=== PATIENT | male | born 1970 | race Caucasian/White ===

== ENCOUNTER 2020-01-21 08:29 | Emergency (ER) | payer BC ==
[~2020-01-21] VITALS: Ht 177.8 cm; Wt 104.3 kg
[2020-01-21 09:08] LABS: ABSOLUTE BASOPHILS 0.1 thou/uL (0.0-0.2); ABSOLUTE EOSINOPHILS 0.2 thou/uL (0.0-0.7); ABSOLUTE LYMPHOCYTES 1.6 thou/uL (0.8-5.3); ABSOLUTE MONOCYTES 0.4 thou/uL (0.0-1.2); ABSOLUTE NEUTROPHILS 2.5 thou/uL (1.6-8.1); BASOPHILS 1.3 %; EOSINOPHILS 3.6 %; LYMPHOCYTES 34.2 %; MCH 28.1 pg (26.0-34.0); MCHC 33.4 g/dL (28.0-37.0); MONOCYTES 7.6 %; MPV 8.8 fl. (7.2-11.1); NUCLEATED RBCS 0 /100WBC; PLATELET COUNT* 202 thou/uL (150-400); POLYS 53.3 %; RDW-CV 13.6 % (10.5-14.5); WBC 4.7 thou/uL (4.0-11.0)
[2020-01-21 09:13] LABS: CALCIUM 8.7 mg/dL (8.5-10.1); CREATININE 1.3 mg/dL (0.6-1.3); POTASSIUM 3.8 mmol/L (3.5-5.1)
[2020-01-21 09:17] LABS: ALBUMIN 3.9 g/dL (3.4-5.0); TOTAL BILIRUBIN 0.5 mg/dL (<0.1-1.0); TOTAL PROTEIN 6.6 g/dL (6.4-8.2)
[2020-01-21 12:00] VITALS: BP 115/70
--- NOTE | 2020-01-21 15:41 | EKG ---
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
== END 2020-01-21 12:05 | disposition home or self-care (01) ==
LOC: M.ERS 08:29
PROVIDERS: Emergency Medicine Emergency Medical Services
DX: R55 Syncope and collapse (principal); R42 Dizziness and giddiness

== ENCOUNTER → 2020-02-19 | Outpatient (CLI) | payer BC ==
--- NOTE | 2020-02-19 17:03 | CARDNUC ---
[place] [address] CARDIAC NUCLEAR IMAGING REPORT Name: GONSALO SPEARS Room: [facility]#: [id number] Admission: 02/19/20 Attend Phys: Dimitris Castro, Discharge: Date of : 68 Date of Service: 02/19/20 1703 Report #: [id number] THIS REPORT FOR: cc: FAM - No family physician/PCP FAM - No family physician/PCP Gonsalo Patricio MD [facility] ~ APPROVED REPORT Imaging Protocol: Rest Tc-99m/Stress Tc-99m 1 day Study performed: 02/19/2020 09:45:00 Indication: Dyspnea, Syncope Patient Location: Out-Patient Stress Tech: Emilia Davila Stress Nurse: Molly Grullon RN NM Tech:RYAN Mathews Ht: 5 ft 10 in Wt: 232 lbs BSA: 2.22 m2 BMI: 33.28 Medical History Medical History: Valvular heart disease Medications: nonoe Allergies: No known drug allergies Cardiac Risk Factors: Age Exercise History: Physically active Resting Data Rest SPECT myocardial perfusion imaging was performed in supine position 30 minutes following the intravenous injection of 9.6 mCi of Tc-99m Sestamibi. Time of rest injection: 1005 Date: 02/19/2020 The images were gated to evaluate regional wall motion and calculate left ventricular ejection fraction. Administration Route: IV Administration Site: Left Hand Exercise Stress At peak stress, the patient was injected intravenously with 29.6mCi of Tc-99m Sestamibi. Time of stress injection: 1140 Date: 02/19/2020 Administration Route: IV Administration Site: Left Hand Gated Stress SPECT was performed 30 [place] [address] CARDIAC NUCLEAR IMAGING REPORT Name: GONSALO SPEARS Room: [facility]#: [id number] Admission: 02/19/20 Attend Phys: Dimitris Castro, Discharge: Date of : 68 Date of Service: 02/19/20 1703 Report #: [id number] injection. The images were gated to evaluate regional wall motion and calculate left ventricular ejection fraction. Prone imaging was performed. Stress Test Details Stress Test: Exercise stress testing was performed using a Farhan protocol. HR Max Heart Rate (APMHR): 170 bpm Resting HR: 74 bpm Target HR (85% APMHR): 144 bpm Max HR Achieved: 160 bpm % of APMHR: 94 Recovery HR: 94 bpm BP Resting BP: 119/76 mmHg Max BP: 177/73 mmHg Recovery BP: 140/78 mmHg ECG Resting ECG: Sinus Rhythm Stress ECG: Sinus Tachycardia ST Change: Horizontal ST depression Maximum ST Deviation: 0.5 mm Arrhythmia: None Recovery ECG: Sinus Rhythm Recovery ST Change: Horizontal ST depression Recovery ST Deviation: 0.5 mm Recovery Arrhythmia: None Clinical Reason for Termination: Fatigue Exercise duration: 6 min 17 sec Exercise capacity: 7.47 METs Functional Aerobic Impairment 94% The patient had no significant cardiac symptoms with the standard Farhan protocol exercise. Stress ECG Conclusion The baseline twelve-lead EKG shows sinus rhythm with mild diffuse ST elevation consistent with early repolarization. EKGs obtained during and post exercise show sinus rhythm and sinus tachycardia with 0.[address] segment depression. There were no stress-induced arrhythmias[place] [address] CARDIAC NUCLEAR IMAGING REPORT Name: GONSALO SPEARS Room: [facility]#: [id number] Admission: 02/19/20 Attend Phys: CarltonAngelique Emmett Castro, Discharge: Date of : 68 Date of Service: 02/19/20 1703 Report #: [id number] Study: Good Artifact: No artifact Study Data At rest, the left ventricular ejection fraction was 72%.. Post stress, the left ventricular ejection was 60%.. Perfusion Perfusion images obtained at rest and post exercise stress show relatively uniform uptake of the radioisotope throughout the myocardium. There were no defects to suggest obvious ischemia or infarct. Wall Motion Normal left ventricular wall motion. Nuclear Conclusion ECG Findings: negative for ischemia Clinical Findings: negative for ischemia Nuclear Findings: negative for ischemia Exercise Capacity: Diminished Left Ventricular Function: normal Risk Study: low Perfusion study show no defect to suggest infarct or ischemia. Left ventricular systolic function appears normal on gated studies. This is a low risk study. <Conclusion> The baseline twelve-lead EKG shows sinus rhythm with mild diffuse ST elevation consistent with early repolarization. EKGs obtained during and post exercise show sinus rhythm and sinus tachycardia with 0.[address] segment depression. There were no stress-induced arrhythmias. <ELECTRONICALLY SIGNED> By: Gonsalo Patricio MD, FACC 02/19/20 170 02 02 Gonsalo Patricio MD, FACC /INF
== END ==
LOC: M.NUC 02-09 11:15
PROVIDERS: ATTEND Internal Medicine
DX: R00.0 Tachycardia, unspecified (principal); R06.09 Other forms of dyspnea; R55 Syncope and collapse